=== PATIENT | female | born 1995 ===

== ENCOUNTER 2018-01-17 07:18 | Inpatient (IN) | payer MEDICAID, SELFPAY ==
[2018-01-17 08:36] VITALS: BMI 28.7
[2018-01-17] MEDS ORDERED: Lactated Ringer's 1,000 ML IV SCH (08:45)
[2018-01-17 08:59] LABS: BASO # 0.1 K/uL (0.0-0.2); BASO % 0.6 % (0.0-2.0); EOS % 0.1 % (0.0-4.0); HEMOGLOBIN 12.4 g/dL (12.0-16.0); LYMPH # 1.8 K/uL (1.0-4.3); LYMPH % 15.1 % (20.0-40.0); MEAN CELL VOLUME 95.7 fl (81.0-99.0); MEAN CORPUSCULAR HEMOGLOBIN 32.7 pg (27.0-31.0); MEAN CORPUSCULAR HGB CONC 34.2 g/dL (33.0-37.0); MEAN PLATELET VOLUME 9.6 fl (7.2-11.7); MONO # 0.8 K/uL (0.0-0.8); MONO % 6.5 % (0.0-10.0); NEUT # 9.1 K/uL (1.8-7.0); NEUT % 77.7 % (50.0-75.0); NRBC % 0.1 % (0.0-0.0); RBC 3.79 Mil/uL (3.80-5.20); RED CELL DISTRIBUTION WIDTH 13.7 % (11.5-14.5); WHITE BLOOD COUNT 11.8 K/uL (4.8-10.8)
[2018-01-17] MEDS: Lactated Ringer's 1,000 ML IV SCH ×2 (09:00→09:43)
[2018-01-17] MEDS ORDERED: Oxytocin 30 units/LR 500ML 30 UNITS/500 ML BAG IV ONE (10:09)
[2018-01-17] MEDS ORDERED: Lidocaine 2% Inj (20ml) ONE (14:14)
--- NOTE | 2018-01-17 15:00 | OBDS ---
DELIVERY PERSONNEL Delivery Doctor: Mary Ayers MD Paint Stockman: AnshufranciscoVeronica RN MATERNAL INFORMATION Delivery Anesthesia: Local Medications in Delivery: Pitocin,30units Estimated Blood Loss (ml): 350 Placenta Cultured: No Maternal Complications: None Provider Comments: Delivered live baby boy at 2:15 PM, the baby was bulb suctioned on the perineum a nd transferred to the maternal chest. The cord was clamped and cut and 3 vessels noted cord blood was obtained and sent to the lab. The placenta was removed spontaneously at 2:18 PM intact. There was a first-degree laceration which was repaired with 2-0 Rapide. Estimated blood loss was 150 mL. The moth er tolerated the procedure well and the baby went to the well baby nursery with Apgars of 9 and 9 [facility] 4781 g LABOR SUMMARY EDC: 01/28/2018 00:00 No. Babies in Womb: 0 Attempted: No Labor Anesthesia: None LABOR INFORMATION Reason for Induction: Not Applicable Onset of Labor: 01/17/2018 05:00 Complete Dilatation: 01/17/2018 12:29 Other Ripening Agents: n/a Oxytocin: N/A Group B Beta Strep: Negative Antibiotics # of Doses: n/a Antibiotics Time of Last Dose: n/a Steroids Given: None Reason Steroids Not Administered: Not Applicable MEMBRANES Membranes Rupture Method: Artificial Rupture of Membranes: 01/17/2018 12:29 Length of Rupture (hrs): 1.77 Amniotic Fluid Color: Clear Amniotic Fluid Amount: Moderate Amniotic Fluid Odor: Normal STAGES OF LABOR Stage 1 hrs: 7 Stage 1 min: 29 Stage 2 hrs: 1 Stage 2 min: 46 Stage 3 hrs: 0 Stage 3 min: 3 Total Time in Labor hrs: 9 Total Time in Labor min: 18 VAGINAL DELIVERY Episiotomy: None Laceration Extension: First Degree Laceration Type: Perineal Laceration Repair: Yes Initial Vag Sponge Count: 10 Final Vag Sponge Count: 10 Initial Vag Sharps Count: 2 Final Vag Sharps Count: 2 Sponge Count Correct: Yes; Vaginal Sweep Performed Sharps Count Correct: Yes Count Comment: kim conted with Dr Ayers BABY A INFORMATION Infant Delivery Date/Time: 01/17/2018 14:15 Method of Delivery: Vaginal Born in Route : No : N/A Forceps: N/A Vacuum Extraction: N/A Shoulder Dystocia : No SHOULDER DYSTOCIA BABY A Infant Delivery Date/Time: 01/17/2018 14:15 PRESENTATION/POSITION BABY A Presentation: Cephalic Cephalic Presentation: Vertex Breech Presentation: N/A PLACENTA INFORMATION BABY A Placenta Delivery Time : 01/17/2018 14:18 Placenta Method of Delivery: Spontaneous Placenta Status: Delivered SCORES BABY A Heart Rate 1 min: >100 bpm Resp Effort 1 min: Good Cry Reflex Irritability 1 min: Cough or Sneeze or Pulls Away Muscle Tone 1 min: Active Motion Color 1 min: Body [place], Extremities Blue SCORE 1 MIN: 9 Heart Rate 5 min: >100 bpm Resp Effort 5 min: Good Cry Reflex Irritability 5 min: Cough or Sneeze or Pulls Away Muscle Tone 5 min: Active Motion Color 5 min: Body [place], Extremities Blue SCORE 5 MIN: 9 INFORMATION BABY A Gestational Age at Delivery: 37.0 Gestational Status: Term Infant Outcome : Liveborn Condition : Stable Sex: Male IDENTIFICATION/MEDS BABY A ID Band Number: [id number] ID Band Location: Left Leg; Left Arm WEIGHT/LENGTH BABY A Infant Birthweight (gms): 3625 Weight (lb): 8 Infant Weight (oz): 0 CORD INFORMATION BABY A No. Cord Vessels: 3 Nuchal Cord : N/A Cord Blood Taken: Yes Suction: Mouth; Nose ASSESSMENT BABY A Infant Complications: None Physical Findings at Delivery: Within Normal Limits Respirations: Appears Normal Land Title Examiner/ALS Called : No Infant Care By: Becca/Sharad RNs Transferred To: Remains with Mother
[2018-01-17] MEDS ORDERED: Benzocaine/Menthol SPRAY TOP PRN ×2 (15:46→17:29)
[2018-01-18 06:42] LABS: BASO % 0.3 % (0.0-2.0); EOS # 0.1 K/uL (0.0-0.7); EOS % 0.5 % (0.0-4.0); HEMOGLOBIN 10.1 g/dL (12.0-16.0); LYMPH # 3.2 K/uL (1.0-4.3); LYMPH % 26.8 % (20.0-40.0); MEAN CELL VOLUME 95.8 fl (81.0-99.0); MEAN CORPUSCULAR HEMOGLOBIN 33.2 pg (27.0-31.0); MEAN CORPUSCULAR HGB CONC 34.7 g/dL (33.0-37.0); NEUT # 7.7 K/uL (1.8-7.0); NEUT % 64.4 % (50.0-75.0); NRBC % 0.1 % (0.0-0.0); RBC 3.05 Mil/uL (3.80-5.20)
[2018-01-18] MEDS: Multivitamin With Minerals Tab PO SCH (08:01)
[2018-01-18] MEDS ORDERED: Measles, Mumps, and Rubella 0.5 ML VIAL SC ONE (09:00)
[2018-01-18] MEDS ORDERED: Multivitamin With Minerals Tab PO SCH (09:00)
--- NOTE | 2018-01-18 16:59 | OBPPN ---
Datetime: 01/18/2018 07:26 PP Pain Prov: Within normal limits PP Nausea Prov: Denies PP Flatus Prov: Yes PP BM Prov: No PP Heart Prov: Normal PP Lungs Prov: Normal PP Abdomen/Uterus Prov: Normal PP Lochia Prov: Normal PP Extremities Prov: Normal PP C/S Incision Prov: Not Applicable PP Impression Prov: Normal progression PP Plan Prov: Continue present management PP Progress Note Prov: 22 yo s/p NVD on 01/17/18 at 14:15. Pt was seen and examined at bedside this am; no acute events overnight. Pain is appropriately controlled. She is ambulating around the room, voiding freely. She is tolerating PO intake, and is breast and bottle feeding . Has pass ed gas. Lochia like menses. Denies chest pain, dyspnea, nausea, vomiting, and calf pain. Gen: awake, alert, no acute distress Resp: clear to auscultation bilaterally, normal effort CV: RRR, S1S2 Abd: + bs, soft, mildly and appropriately tender, firm fundus at umbilical level, Ext: no edema, no calf tenderness Neuro/psych: AAOx3, no gross focal deficit, preserved affect and mood. A/P 22 yo s/p NVD on 01/17/18 at 14:15, doing well. Continue with pain control with ibuprofen Encourage and ambulation. Continue current post- management. Anticipated discharge 01/19/18. [email or web address] Patient seen and evaluated by me today. Agree with above note. Continue expectant management, -Encouraged breast feeding -May use Motrin for pain Vital Signs Provider PP: Reviewed
[2018-01-19] MEDS ORDERED: Measles, Mumps, and Rubella 0.5 ML VIAL SC ONE (09:00)
[2018-01-19] MEDS: Multivitamin With Minerals Tab PO SCH (10:00)
--- NOTE | 2018-01-19 11:05 | OBDCSUM ---
Datetime: 01/19/2018 06:29 Discharged to, Provider: Home Follow up at, Provider: [facility] Disch Instr Activity: Normal activity Disch Instr Diet: Regular Discharge Instructions, Provider: Routine instructions given Discharge Diagnosis, Provider: Term Delivered Discharge Time: 01/19/2018 11:03 Follow up in weeks, Provider: 4-6 weeks Disch Activity Restrictions: No lifting; No sexual activity; Nothing in vagina - [place], tampon s, douche Discharge Comment, Provider: 22 yo , s/p NVD of viable male infant on 01/17/18 at 14:15, weight 3625, APGARS: 9/9. Doing well on PPD 2. Discharge instructions: Encourage PNV 1 tab by mouth daily Ibuprofen 600 mg 1 tab every 6 hours as needed if moderate pain Ambulate with caution, nothing per vagina for 6 weeks, no heavy lifting. If excessive bleeding, or fever without relief from tylenol, go to ED. Please follow up with Dr. Locke at [facility] at [address] in 4-6 weeks; you will be notified with appt time. Please follow up at [facility] at [address] [place] [address] at 3:20 pm on 01/24/18 for your bab y's visit. [email or web address]
[2018-01-19 22:50] VITALS: BP 109/58; PULSE 78; RESP 20; TEMP 97.2; O2SAT 99
== END 2018-01-19 14:15 | disposition home or self-care (01) | DRG 775 ==
LOC: H.EROB2 07:18 → H.EROB 07:41 → H.EROB2 08:32 → H.L&D 08:33 → H.OB/GYN 16:42
PROVIDERS: ADMIT Obstetrics & Gynecology Gynecology; ATTEND Obstetrics & Gynecology Gynecology
PROC: 10E0XZZ Delivery of Products of Conception, External Approach (ICD-10-PCS; principal; 2018-01-17)
PROC: 0HQ9XZZ Repair Perineum Skin, External Approach (ICD-10-PCS; 2018-01-17)
PROC: 4A1HXCZ Monitoring of Products of Conception, Cardiac Rate, External Approach (ICD-10-PCS; 2018-01-17)
DX: O70.0 First degree perineal laceration during delivery (principal); Z37.0 Single live birth; Z3A.38 38 weeks gestation of pregnancy